=== PATIENT | female | born 1940 | race African-American/Black ===

== ENCOUNTER 2019-11-02 01:05 | Emergency (ER) | payer OTHER ==
[~2019-11-02] VITALS: Ht 162.6 cm; Wt 50.0 kg
[2019-11-02] MEDS ORDERED: ACETAMINOPHEN 325MG TABLET PO STA (02:07)
[2019-11-02 02:52] LABS: BASOPHILS % 0.8 % (0.0-2.0); EOSINOPHILS % 0.6 % (0.0-5.0); HEMOGLOBIN. 9.7 g/dL (12.0-16.0); MEAN CORPUSCULAR HEMOGLOBIN 39.4 pg (28.0-32.0); MEAN CORPUSCULAR VOLUME 113.9 fL (81.0-99.0); MEAN PLATELET VOLUME 8.4 fl (7.4-10.4); MONOCYTES % 10.2 % (2.0-8.0); NEUTROPHILS % 62.4 % (40.0-76.0); RED BLOOD CELL COUNT 2.46 mill/uL (4.2-5.4); RED CELL DISTRIBUTION WIDTH 16.1 % (11.6-14.6)
[2019-11-02 03:37] LABS: CHLORIDE 108 mEq/L (98-107)
[2019-11-02 03:38] LABS: PLATELET 28 x1000/uL (130-400)
[2019-11-02 05:50] VITALS: BP 138/69
[2019-11-02 08:20] LABS: PLATELET ESTIMATE DECREASED
== END 2019-11-02 06:05 | disposition short-term general hospital (02) ==
LOC: ER 01:05
DX: R51 Headache (principal); I10 Essential (primary) hypertension; Z88.6 Allergy status to analgesic agent
CPT/HCPCS: 36415; 80048; 84484; 85025; 93005; 99285

== ENCOUNTER 2023-06-02 05:17 | Emergency (ER) | payer OTHER ==
[~2023-06-02] VITALS: Ht 165.1 cm; Wt 46.0 kg
[2023-06-02] MEDS: ONDANSETRON HCL 4MG/2ML INJ IV STA (05:23)
[2023-06-02 05:24] VITALS: O2SAT 98
[2023-06-02] MEDS: SODIUM CHLORIDE 0.9% 1,000 ML IV ONE (05:30)
[2023-06-02] MEDS: DIPHENHYDRAMINE 25MG CAPSULE PO ONE (05:30)
[2023-06-02 05:46] LABS: HEMATOCRIT. 24.6 % (36.0-48.0); HEMOGLOBIN. 8.4 g/dL (12.0-16.0); MEAN CORPUSCULAR HEMOGLOBIN 40.7 pg (28.0-32.0); MEAN CORPUSCULAR HGB CONC 34.2 g/dL (31.0-37.0); MEAN CORPUSCULAR VOLUME 119.2 fL (81.0-99.0); MEAN PLATELET VOLUME 8.4 fl (7.4-10.4); RED BLOOD CELL COUNT 2.06 mill/uL (4.2-5.4); RED CELL DISTRIBUTION WIDTH 17.6 % (11.6-14.6)
[2023-06-02 05:54] LABS: PROTHROMBIN TIME 11.3 sec (9.6-11.0)
[2023-06-02 06:01] LABS: DIFFERENTIAL COMMENT 1; PLATELET 18 x1000/uL (130-400); WHITE BLOOD COUNT 1.7 x1000/uL (4.5-11.0)
[2023-06-02 06:09] LABS: ALANINE AMINOTRANSFERASE 16 IU/L (10-49); ALBUMIN 4.2 g/dL (3.2-4.8); ASPARTATE AMINOTRANSFERASE 26 IU/L (<34); BILIRUBIN TOTAL 0.7 mg/dL (0.1-1.0); CALCIUM 9.1 mg/dL (8.7-10.4); CARBON DIOXIDE 30 mEq/L (21-32); CHLORIDE 106 mEq/L (98-107); CREATININE 1.3 mg/dL (0.6-1.0); GLUCOSE 121 mg/dL (70-105); PROTEIN TOTAL 7.2 g/dL (6.0-8.3); SODIUM 140 mEq/L (136-145); UREA NITROGEN BLOOD 19 mg/dL (9-23)
[2023-06-02 08:53] LABS: CLARITY URINE CLEAR (CLEAR); COLOR URINE YELLOW (YELLOW); GLUCOSE URINE NEGATIVE (NEGATIVE); KETONES URINE NEGATIVE (NEGATIVE); LEUKOCYTE ESTERASE URINE NEGATIVE (NEGATIVE); NITRITE URINE NEGATIVE (NEGATIVE); OCCULT BLOOD URINE TRACE (NEGATIVE); PH URINE 6.5 (4.5-8.0); PROTEIN URINE NEGATIVE (NEGATIVE); SPECIFIC GRAVITY URINE 1.011 (1.005-1.030); UROBILINOGEN URINE 0.2 E.U./dL (0.2-1.0)
[2023-06-02 09:19] LABS: TROPONIN I HIGH SENSITIVITY 13 ng/L (3.0-34)
[2023-06-02 09:49] LABS: BACTERIA URINE TRACE; RBC URINE 0-2 /hpf (0-2); SQUAMOUS EPITHELIAL CELL URINE 1+ /lpf (RARE/1+); WBC URINE 0-2 /hpf (0-2); YEAST URINE NONE SEEN
[2023-06-02 10:27] LABS: PLATELET ESTIMATE MARKEDLY DECREASED
[2023-06-02 10:28] LABS: ANISOCYTOSIS 3+
[2023-06-02 10:44] VITALS: BP 136/96; PULSE 69; RESP 15; TEMP 98.3
== END 2023-06-02 11:43 | disposition short-term general hospital (02) ==
LOC: ER 05:17 → EDBEDREQ 05:31 → EDBEDREQSVC 10:28 → CANBEDREQ 11:36 → ER 11:43
DX: D61.818 Other pancytopenia (principal); R53.1 Weakness; I10 Essential (primary) hypertension; Z88.5 Allergy status to narcotic agent
CPT/HCPCS: 99285; 96374; 71045; 96361; 80053; 81003; 83605; 85025; 85610; 87040; 87086; 84484; 36415; 84145; 93005; Q0163; J2405; J7030